=== PATIENT | female | born 1995 | race Caucasian/White ===

== ENCOUNTER 2016-09-12 09:33 | Inpatient (IN) | payer MEDICAID ==
[~2016-09-12] VITALS: Ht 149.9 cm; Wt 65.4 kg
[2016-09-12] MEDS ORDERED: [UNRECOGNIZED DRUG - REMARK] PO (09:41)
[2016-09-12 10:02] LABS: BASOPHILS % (AUTO) 1.4 % (0.0-2.0); HEMATOCRIT 41.7 % (36-46); HEMOGLOBIN 13.6 g/dL (12.0-16.0); LYMPHOCYTES # (AUTO) 2.2 K/uL (1.0-4.8); LYMPHOCYTES % (AUTO) 29.4 % (22.0-44.0); MEAN CORPUSCULAR HEMOGLOBIN 21.6 pg (26.0-34.0); MEAN CORPUSCULAR HGB CONC 32.8 G/dL (31.0-37.0); MEAN CORPUSCULAR VOLUME 66 fL (80-100); MONOCYTES # (AUTO) 0.5 K/uL (0.1-1.0); MONOCYTES % (AUTO) 6.2 % (2.0-9.0); NEUTROPHILS # (AUTO) 4.6 K/uL (1.8-7.7); PLATELET COUNT (AUTO) 353 K/uL (150-450); RED BLOOD CELL COUNT(AUTO) 6.32 MIL/uL (4.00-5.20); RED CELL DISTRIBUTION WIDTH 16.6 % (11.5-14.5); WHITE BLOOD COUNT (AUTO) 7.6 K/uL (4.5-11.0)
[2016-09-12 10:04] LABS: RBC MORPHOLOGY COMMENT ABNORMAL RBC MORPH
[2016-09-12 10:14] LABS: ANION GAP 8 mmol/L (8-16); CALCIUM, TOTAL 9.1 mg/dL (8.8-10.5); CARBON DIOXIDE 28 mmol/L (22-29); CHLORIDE 101 mmol/L (98-107); CREATININE 0.78 mg/dL (0.60-1.30); GLOMERULAR FILTR. RATE CALC > 60 mL/min (>60); POTASSIUM 3.8 mmol/L (3.5-5.1); SODIUM SERUM 137 mmol/L (136-145); UREA NITROGEN, BLOOD 15 mg/dL (7-18)
[2016-09-12 10:21] LABS: ALANINE AMINOTRANSFERASE 49 U/L (12-78); ALBUMIN 4.5 g/dL (3.4-5.0); ASPARTATE AMINOTRANSFERASE 18 U/L (15-37); BILIRUBIN,TOTAL 0.4 mg/dL (0.1-1.0); TOTAL PROTEIN, SERUM 8.4 g/dL (6.4-8.2)
[2016-09-12] MEDS ORDERED: ZOLPIDEM TARTRATE 10 MG TABLET PO PRN (12:15)
[2016-09-12] MEDS ORDERED: DiphenhydrAMINE HCL 50 MG/ML VIAL IM ONE (13:30)
[2016-09-12] MEDS ORDERED: HALOPERIDOL LACTATE 5 MG/ML VIAL IM ONE (13:30)
[2016-09-12] MEDS ORDERED: LORazepam 2 MG/ML VIAL IM ONE (13:30)
[2016-09-12 15:10] VITALS: BP 127/74
[2016-09-12] MEDS: LORazepam 2 MG TABLET PO PRN (17:57)
[2016-09-12 22:03] VITALS: BP 128/77
[2016-09-13 06:52] VITALS: BP 115/63
[2016-09-13 08:23] VITALS: BP 133/65
[2016-09-13 08:56] LABS: HEMOGLOBIN A1C 5.9 % (4.5-6.2)
[2016-09-13 09:16] VITALS: BP 117/65
[2016-09-13] MEDS: ACETAMINOPHEN 325 MG TABLET PO PRN (09:16)
[2016-09-13 09:33] LABS: CHOL/HDL RATIO 2.8 (3.9-5.7); THYROID STIMULATING HORMONE 0.6 uIU/mL (0.36-3.74)
[2016-09-13] MEDS: ARIPiprazole 10 MG TABLET PO SCH (13:07)
[2016-09-13 16:11] VITALS: BP 129/72
[2016-09-14 05:10] VITALS: BP 116/76
[2016-09-14] MEDS: ARIPiprazole 10 MG TABLET PO SCH (08:06)
[2016-09-14 08:14] VITALS: BP 134/84
[2016-09-14 16:08] VITALS: BP 122/79
[2016-09-14] MEDS: LORazepam 2 MG TABLET PO PRN (16:18)
[2016-09-15 05:17] VITALS: BP 127/86
[2016-09-15] MEDS: LORazepam 2 MG TABLET PO PRN (07:15)
[2016-09-15 08:05] VITALS: BP 135/66
[2016-09-15] MEDS: ARIPiprazole 10 MG TABLET PO SCH (08:24)
[2016-09-15 16:39] VITALS: BP 113/80
[2016-09-15] MEDS: ACETAMINOPHEN 325 MG TABLET PO PRN (16:46)
[2016-09-16 06:00] VITALS: BP 128/72
[2016-09-16] MEDS: LORazepam 2 MG TABLET PO PRN ×2 (08:05→20:16)
[2016-09-16] MEDS: ARIPiprazole 10 MG TABLET PO SCH (08:05)
[2016-09-16 08:16] VITALS: BP 136/73
[2016-09-16 16:00] VITALS: BP 119/80
[2016-09-17 05:42] VITALS: BP 121/78
[2016-09-17] MEDS: ARIPiprazole 10 MG TABLET PO SCH (08:28)
[2016-09-17] MEDS: LORazepam 2 MG TABLET PO PRN ×2 (08:28→20:33)
[2016-09-17 08:58] VITALS: BP 143/60
[2016-09-17] MEDS: HALOPERIDOL 5 MG TABLET PO PRN ×2 (09:46→21:08)
[2016-09-17 16:10] VITALS: BP 113/67
[2016-09-18 04:48] VITALS: BP 129/68
[2016-09-18 08:27] VITALS: BP 120/74
[2016-09-18] MEDS: HALOPERIDOL 5 MG TABLET PO PRN (08:49)
[2016-09-18] MEDS: ARIPiprazole 10 MG TABLET PO SCH (08:49)
[2016-09-18] MEDS: LORazepam 2 MG TABLET PO PRN (08:49)
[2016-09-18 16:12] VITALS: BP 110/77
[2016-09-18 20:47] VITALS: BP 129/67
[2016-09-18] MEDS: ACETAMINOPHEN 325 MG TABLET PO PRN (20:49)
[2016-09-19 05:58] VITALS: BP 117/62
[2016-09-19 08:04] VITALS: BP 127/78
[2016-09-19] MEDS: ARIPiprazole 10 MG TABLET PO SCH (08:13)
[2016-09-19] MEDS: LORazepam 2 MG TABLET PO PRN (16:28)
[2016-09-19 16:40] VITALS: BP 106/65
[2016-09-20 00:20] VITALS: BP 123/73
[2016-09-20] MEDS ORDERED: ARIP10TA14 PO (07:53)
[2016-09-20 09:13] VITALS: BP 106/70
[2016-09-20] MEDS: ARIPiprazole 10 MG TABLET PO SCH (10:07)
== END 2016-09-20 13:21 | disposition home or self-care (01) | DRG 750 ==
LOC: EEVIPCON 09:39 → EMS 09:39 → B3A 13:50 → B2S 09-19 16:30
PROVIDERS: ADMIT Psychiatry & Neurology Psychiatry; ATTEND Psychiatry & Neurology Psychiatry
DX: F25.9 Schizoaffective disorder, unspecified (principal); R45.851 Suicidal ideations
CPT/HCPCS: 83036; 84439; 84443; 96372; 99285; G0480; J1200; J1630; J2060